=== PATIENT | female | born 1980 | race Caucasian/White ===

== ENCOUNTER 2019-03-11 11:19 | Day surgery (SDC) | payer OTHER ==
[2019-03-11] MEDS ORDERED: HYDROmorphone 1 MG/ML CARPUJECT IVP STA ×2 (12:07→12:45)
[2019-03-11] MEDS ORDERED: ONDANSETRON 4 MG/2 ML VIAL IVP STA ×2 (12:07→13:25)
--- NOTE | 2019-03-11 12:09 | ED Physician Documentation ---
PD HPI ABD PAIN - Stated complaint Stated Complaint: STERNUM PAIN - Chief complaint Chief Complaint: Abd Pain - History obtained from History obtained from: Patient - History of Present Illness Timing - onset: Today (She had gradual onset right upper quadrant pain radiating to the back starting this morning around 8 AM and was severe by 10 AM. Its associated with nausea and vomiting. This is nothing she is ever had before. Pain is sharp and severe at this point. No changes in bowel movements or possibility of . She had a laparoscopic gastric bypass done about 2 years ago in [place] without cholecystectomy.) Review of Systems Ten Systems: 10 systems reviewed and negative Constitutional: reports: Sweats. denies: Fever, Chills Respiratory: denies: Dyspnea, Cough GI: reports: Abdominal Pain, Nausea, Vomiting. denies: Constipation, Diarrhea : denies: Dysuria, Hesitancy PD PAST MEDICAL HISTORY - Past Surgical History Past Surgical History: Yes General: Gastric surgery - Allergies Allergies/Adverse Reactions: Allergies Allergy/AdvReac Type Severity Reaction Status Date / Time No Known Drug Allergies Allergy Verified 03/11/19 11:26 - Living Situation Living Situation: reports: With spouse/s.o. - Social History Does the pt drink ETOH?: No Does the pt have substance abuse?: No - Family History Family history: reports: Non contributory PD ED PE NORMAL - Vitals Vital signs reviewed: Yes - General General: Alert and oriented X 3, Other (Uncomfortable) - HEENT HEENT: PERRL, EOMI - Neck Neck: Supple, no meningeal sign, No bony TTP - Cardiac Cardiac: RRR, No murmur - Respiratory Respiratory: No respiratory distress, Clear bilaterally - Abdomen Abdomen: Normal bowel sounds, Soft, Other (Quite tender in the right upper quadrant with positive Grant sign.) - Back Back: No CVA TTP, No spinal TTP - Derm Derm: Normal color, Warm and dry - Extremities Extremities: No edema, No calf tenderness / cord - Neuro Neuro: Alert and oriented X 3, Normal speech Results - Vitals Vitals: Vital Signs - 24 hr 03/11/19 03/11/19 11:24 12:10 Temperature 35.9 C L Heart Rate 70 71 Respiratory 18 17 Rate Blood Pressure 141/97 H 122/79 O2 Saturation 100 100 Oxygen O2 Source Room air - Labs Labs: Laboratory Tests 07/24/19 07/24/19 12:01 12:01 WBC 10.1 RBC 4.14 L Hgb 13.4 Hct 38.6 MCV 93.2 MCH 32.4 H MCHC 34.7 RDW 11.9 L Plt Count 215 MPV 9.9 Neut # (Auto) 7.4 H Lymph # (Auto) 1.9 [place] # (Auto) 0.7 Eos # (Auto) 0.1 Baso # (Auto) 0.0 Absolute Nucleated RBC 0.00 Nucleated RBC % 0.0 Sodium 138 Potassium 4.0 Chloride 102 Carbon Dioxide 23 Anion Gap 13.0 BUN 13 Creatinine 0.8 Estimated GFR (MDRD) 81 L Glucose 105 H Calcium 9.0 Total Bilirubin 0.9 AST 24 ALT 28 Alkaline Phosphatase 50 Total Protein 7.2 Albumin 3.9 Globulin 3.3 Albumin/Globulin Ratio 1.2 Lipase 35 - Rads (name of study) Abd sono Radiology: EMP read contemporaneously (Dilated gallbladder with multiple stones and mild wall thickening.) PD MEDICAL DECISION MAKING - ED course ED course: 38-year-old woman status post gastric bypass presents with pain very suggestive of a biliary source. Multiple gallstones on ultrasound with a dilated gallbladder but normal bile duct and no transaminitis or obstructive pattern on labs. Spoke with Dr. Amador given the difficulty of pain control in her, requiring multiple doses of divided narcotics and she will take her to the operating room. Departure - Departure Disposition: ED Transfer to [facility] Clinical Impression: Biliary colic Condition: Stable
[2019-03-11 12:17] LABS: BASOPHILS % (AUTO) 0.4 %; EOSINOPHILS # (AUTO) 0.1 10^3/uL (0.0-0.7); EOSINOPHILS % (AUTO) 0.7 %; HGB - HEMOGLOBIN 13.4 g/dL (12.0-16.0); LYMPHOCYTES # (AUTO) 1.9 10^3/uL (1.5-3.5); LYMPHOCYTES % (AUTO) 18.7 %; MEAN CORPUSCULAR HEMOGLOBIN 32.4 pg (27.0-31.0); MEAN CORPUSCULAR HGB CONC 34.7 g/dL (32.0-36.0); MEAN CORPUSCULAR VOLUME 93.2 fL (81.0-99.0); MEAN PLATELET VOLUME 9.9 fL (7.9-10.8); MONOCYTES # (AUTO) 0.7 10^3/uL (0.0-1.0); MONOCYTES % (AUTO) 7.1 %; NEUTROPHILS # (AUTO) 7.4 10^3/uL (1.5-6.6); NEUTROPHILS % (AUTO) 72.6 %; PLT - PLATELET COUNT 215 10^3/uL (130-450); RED BLOOD COUNT 4.14 10^6/uL (4.20-5.40); RED CELL DISTRIBUTION WIDTH 11.9 % (12.0-15.0); WHITE BLOOD COUNT 10.1 x10^3/uL (4.8-10.8)
[2019-03-11 12:26] LABS: CREATININE 0.8 mg/dL (0.4-1.0)
[2019-03-11 12:27] LABS: ALBUMIN 3.9 g/dL (3.2-5.5); ALBUMIN/GLOBULIN RATIO 1.2 (1.0-2.2); BILIRUBIN,TOTAL 0.9 mg/dL (0.2-1.0); TOTAL PROTEIN 7.2 g/dL (6.7-8.2)
[2019-03-11] MEDS ORDERED: METOCLOPRAMIDE 10 MG/2 ML VIAL IVP STA (12:45)
[2019-03-11] MEDS ORDERED: KETOROLAC 30 MG/ML VIAL IVP STA (13:25)
[2019-03-11] MEDS ORDERED: LACTATED RINGERS 1,000 ML IV STA (13:32)
--- NOTE | 2019-03-11 13:51 | Ultrasound Report ---
Reason: RUQ pain Procedure Date: 03/11/2019 Accession Number: [id number] / [id number] Procedure: US - Abdomen Limited CPT Code: FULL RESULT: EXAM: ABDOMEN ULTRASOUND LIMITED, RUQ EXAM DATE: 03/11/2019 01:20 PM. CLINICAL HISTORY: Right upper quadrant pain. COMPARISON: None. TECHNIQUE: Real-time scanning was performed with static images obtained. FINDINGS: Liver: Liver parenchyma is somewhat echogenic and mildly coarse, limiting evaluation for underlying 19 cm. Main portal vein flow: Hepatopetal. Gallbladder: Cholelithiasis, stones are felt to be mobile by the sonography technologist on positioning, minimally thickened gallbladder for degree of distention, gallbladder is distended. There is no pericholecystic fluid or discontinuity of the gallbladder wall. The sonographic Grant's sign could not be assessed, patient was administered pain medication. Biliary System: CBD measures 3 mm. No intrahepatic or extrahepatic ductal dilatation. Other: None. IMPRESSION: Distended gallbladder with mild gallbladder wall thickening and cholelithiasis. While there is no marked gallbladder wall thickening or discontinuity of the sonographic signature of the gallbladder wall or pericholecystic fluid to suggest florid cholecystitis, chronic cholecystitis or early/sonographically indolent cholecystitis remain possible in the setting of a nondiagnostic sonographic Grant's sign. [facility]
[2019-03-11 14:01] LABS: BILIRUBIN,URINE NEGATIVE (NEGATIVE); GLUCOSE, URINE (UA) NEGATIVE (NEGATIVE); KETONES,URINE (UA) 40 mg/dL (NEGATIVE); LEUKOCYTE ESTERASE, URINE SMALL (NEGATIVE); NITRITE,URINE NEGATIVE (NEGATIVE); OCCULT BLOOD,URINE TRACE-INTA (NEGATIVE); PROTEIN,URINE NEGATIVE (NEGATIVE); UROBILINOGEN,URINE 0.2 (NORMAL) E.U./dL (NORMAL)
[2019-03-11 14:04] LABS: CLARITY,URINE HAZY (CLEAR); HCG UR QUAL NEGATIVE
[2019-03-11 14:13] LABS: RBC,URINE 0-5 /HPF (0-5); SQUAMOUS EPITHELIAL CELL,UR MOD Squamous (<= Few)
[2019-03-11 14:14] LABS: BACTERIA,URINE Moderate /HPF (None Seen)
[2019-03-11] MEDS ORDERED: LIDOCAINE-MPF 1% 30 ML VIAL ONE (14:32)
[2019-03-11] MEDS ORDERED: BUPIVACAINE 0.5%-EPI 1:200000 PF 30 ML VIAL ONE (14:32)
[2019-03-11] MEDS ORDERED: cefOXitin 2 GM in SODIUM CHLORIDE 0.9% MINIBAG 100 ML IV STA (14:43)
--- NOTE | 2019-03-11 14:49 | HISTORY & PHYSICAL EXAMINATION ---
HPI - Admitted From Admitted from: ED - History Obtained From Records Reviewed: RN notes reviewed History obtained from: Patient, Family Exam limitations: No limitations - History of Present Illness Pain/Problem Location Description: Right upper quadrant Severity at the worst: reports: Severe Pain Quality: reports: Sharp, Dull, Aching, Cramping Context-Pain started w/: reports: Eating Timing: reports: Abrupt onset, Constant Duration: reports: Hours: (4) Improved with: reports: Nothing Worsened by: reports: Nothing Associated symptoms: reports: Nausea, Vomiting HPI Comment/Other: Love is a jolene 38 year old lady who was in her usual state of health when s he developed sudden onset of severe right upper quadrant pain this morning. She has a history of gastric bypass approximately 2 years ago and has lost 70 pounds. At the time of her bypass, she did not have gall stones so cholecystectomy was not included with the bypass. She denies any sick contacts. She denies any fever. She has never had similar symptoms. PMH/PSH - Past Medical History Respiratory: positive: None Neuro: positive: None Endocrine/Autoimmune: positive: None GI: positive: None INSURANCE BILLER: positive: None : positive: None HEENT: positive: None Psych: positive: None Musculoskeletal: positive: None Derm: positive: None MRSA Hx?: No - Past Surgical History General: positive: Gastric surgery Social & Family Hx - Living Situation Living Arrangement: Other (Lives in [place] with her significant other. She is here visiting family for her sister's wedding.) - Social History Does the pt drink ETOH?: No Does the pt have substance abuse?: No - POLST POLST Status: Full Code - Family History Family History: Mother: Alive and Well, Father: Alive and Well, Sister: Alive and Well Meds/Allgy - Allergies Allergies/Adverse Reactions: Allergies Allergy/AdvReac Type Severity Reaction Status Date / Time No Known Drug Allergies Allergy Verified 03/11/19 11:26 Review of Systems - Constitutional Constitutional: denies: Fatigue, Fever - Eyes Eyes: denies: Pain, Irritation, Blurred vision - Ears, Nose & Throat Ears, Nose & Throat: denies: Tinnitus, Vertigo - Cardiovascular Cariovascular: denies: Irregular heart rate, Palpitations, Lightheadedness - Respiratory Respiratory: denies: Cough, Wheezing, Orthopnea - Gastrointestinal Gastrointestinal: reports: Abdominal pain, Nausea, Vomiting - Genitourinary Genitourinary: denies: Dysuria, Frequency, Urgency - Musculoskeletal Musculoskeletal: denies: Muscle pain, Back pain - Integumentary Integumentary: denies: Rash, Lesions - Neurological Neurological: denies: General weakness - Hematologic/Lymphatic Hematologic/Lymphatic: denies: Anemia, Bruising - All Other Systems All Other Systems: reports: Reviewed and negative Exam - Vital Signs Reviewed Vital Signs: Yes Vital Signs: Vital Signs x48h Temp Pulse Resp BP Pulse Ox 03/11/19 12:10 71 17 122/79 100 03/11/19 11:24 35.9 C L 70 18 141/97 H 100 - Physical Exam General Appearance: positive: Alert, Moderate distress Eyes Bilateral: positive: Normal inspection, PERRL, EOMI ENT: positive: ENT inspection nml Neck: positive: Nml inspection, Thyroid nml, No JVD, Trachea midline. negative: Carotid bruit Respiratory: positive: Chest non-tender, No respiratory distress, Breath sounds nml. negative: Wheezes Cardiovascular: positive: Regular rate & rhythm, No murmur, No gallop Peripheral Pulses: positive: 2+ Abdomen: positive: Nml bowel sounds, No distention, Other (Tender to palpation in the right upper quadrant) Back: negative: CVA tenderness (R), CVA tenderness (L) Skin: positive: Color nml, No rash Extremities: positive: Non-tender, Nml appearance Neurologic/Psychiatric: positive: Oriented x3, CN's nml (2-12) Results - Lab Results Lab results reviewed: Yes Fish Bones: 03/11/19 12:01 03/11/19 12:01 Other Lab Results: Lab Results x24hrs 03/11/19 03/11/19 03/11/19 Range/Units 13:48 12:01 12:01 WBC 10.1 (4.8-10.8) x10^3/uL RBC 4.14 L (4.20-5.40) 10^6/uL Hgb 13.4 (12.0-16.0) g/dL Hct 38.6 (37.0-47.0) % MCV 93.2 (81.0-99.0) fL MCH 32.4 H (27.0-31.0) pg MCHC 34.7 (32.0-36.0) g/dL RDW 11.9 L (12.0-15.0) % Plt Count 215 (130-450) 10^3/uL MPV 9.9 (7.9-10.8) fL Neut # (Auto) 7.4 H (1.5-6.6) 10^3/uL Lymph # (Auto) 1.9 (1.5-3.5) 10^3/uL [place] # (Auto) 0.7 (0.0-1.0) 10^3/uL Eos # (Auto) 0.1 (0.0-0.7) 10^3/uL Baso # (Auto) 0.0 (0.0-0.1) 10^3/uL Absolute Nucleated RBC 0.00 x10^3/uL Nucleated RBC % 0.0 /100WBC Sodium 138 (135-145) mmol/L Potassium 4.0 (3.5-5.0) mmol/L Chloride 102 (101-111) mmol/L Carbon Dioxide 23 (21-32) mmol/L Anion Gap 13.0 (6-13) BUN 13 (6-20) mg/dL Creatinine 0.8 (0.4-1.0) mg/dL Estimated GFR (MDRD) 81 L (>89) Glucose 105 H (70-100) mg/dL Calcium 9.0 (8.5-10.3) mg/dL Total Bilirubin 0.9 (0.2-1.0) mg/dL AST 24 (10-42) IU/L ALT 28 (10-60) IU/L Alkaline Phosphatase 50 (42-121) IU/L Total Protein 7.2 (6.7-8.2) g/dL Albumin 3.9 (3.2-5.5) g/dL Globulin 3.3 (2.1-4.2) g/dL Albumin/Globulin Ratio 1.2 (1.0-2.2) Lipase 35 (22-51) U/L Urine Color DARK YELLOW Urine Clarity HAZY (CLEAR) Urine pH 6.0 (5.0-7.5) PH Ur Specific [place] >=1.030 H (1.002-1.030) Urine Protein NEGATIVE (NEGATIVE) mg/dL Urine Glucose (UA) NEGATIVE (NEGATIVE) mg/dL Urine Ketones 40 H (NEGATIVE) mg/dL Urine Occult Blood TRACE-INTA (NEGATIVE) Urine Nitrite NEGATIVE (NEGATIVE) Urine Bilirubin NEGATIVE (NEGATIVE) Urine Urobilinogen 0.2 (NORMAL) (NORMAL) E.U./dL Ur Leukocyte Esterase SMALL H (NEGATIVE) Urine RBC 0-5 (0-5) /HPF Urine WBC 0-3 (0-5) /HPF Ur Squamous Epith Cells MOD Squamous H (<= Few) Urine Bacteria Moderate H (None Seen) /HPF Ur Microscopic Review INDICATED Urine Culture Comments NOT INDICATED Urine HCG, Qual NEGATIVE - Diagnostic Imaging Results Diagnostic Imaging Results: positive: Final report reviewed Diagnostic Imaging Results Comments: Final Report PT NAME: LOVE MCKINNEY MR#: [id number] REG ER/ED AGE: 38 CI DT/TM: 03/11/19 PCP: : 1980 ATT: SEX: F ORD: Praveen enamorado MD EXAM: [id number] US/ABDLTD ([id number]) Reason: RUQ pain Procedure Date: 03/11/2019 Accession Number: [id number] / [id number] Procedure: US - Abdomen Limited CPT Code: FULL RESULT: EXAM: ABDOMEN ULTRASOUND LIMITED, RUQ EXAM DATE: 03/11/2019 01:20 PM. CLINICAL HISTORY: Right upper quadrant pain. COMPARISON: None. TECHNIQUE: Real-time scanning was performed with static images obtained. FINDINGS: Liver: Liver parenchyma is somewhat echogenic and mildly coarse, limiting evaluation for underlying 19 cm. Main portal vein flow: Hepatopetal. Gallbladder: Cholelithiasis, stones are felt to be mobile by the radiology technologist on positioning, minimally thickened gallbladder for degree of distention, gallbladder is distended. There is no pericholecystic fluid or discontinuity of the gallbladder wall. The sonographic Grant's sign could not be assessed, patient was administered pain medication. Biliary System: CBD measures 3 mm. No intrahepatic or extrahepatic ductal dilatation. Other: None. IMPRESSION: Distended gallbladder with mild gallbladder wall thickening and cholelithiasis. While there is no marked gallbladder wall thickening or discontinuity of the sonographic signature of the gallbladder wall or pericholecystic fluid to suggest florid cholecystitis, chronic cholecystitis or early/sonographically indolent cholecystitis remain possible in the setting of a nondiagnostic sonographic Grant's sign. [facility] House Worker General: Reading Radiologist: Feliciano Nunez MD Releasing Radiologist: Feliciano Nunez MD Released Date Time: 03/11/191352 Report 52 cc: Praveen Grove MD Principal Wares Sorter Name: Feliciano Nunez Provider ID: [email or web address] Impression/Plan - Problem List Problem List: Pleasant and generally healthy 38 year old lady with cholelithiasis and intractable biliary colic. We have discussed the risks, benefits, and alternatives to cholecystectomy and the patient has expressed both understanding of the risks and a desire to have the procedure. We will proceed to the operating room.
[2019-03-11] MEDS ORDERED: levoFLOXacin 500 MG/100 ML 500 MG/100 ML BAG IV ONE (14:50)
--- NOTE | 2019-03-11 14:54 | ANESTHESIA ---
Pre-Anesthesia VS, & Labs - Diagnosis cholecystitis - Procedure laparoscopic cholecystectomy Vital Signs: Temp Pulse Resp BP Pulse Ox 35.9 C L 71 17 122/79 100 03/11/19 11:24 03/11/19 12:10 03/11/19 12:10 03/11/19 12:10 03/11/19 12:10 Height 5 ft 8 in Weight (kg) 104.326 kg Body Mass Index 34.9 - NPO Other (0930 today) - Is Patient ?: No - Lab Results Current Lab Results: Laboratory Tests 03/11/19 12:01: Sodium 138, Potassium 4.0, Chloride 102, Carbon Dioxide 23, Anion Gap 13.0, BUN 13, Creatinine 0.8, Estimated GFR (MDRD) 81 L, Glucose 105 H , Calcium 9.0, Total Bilirubin 0.9, AST 24, ALT 28, Alkaline Phosphatase 50, Total Protein 7.2, Albumin 3.9, Globulin 3.3, Albumin/Globulin Ratio 1.2, Lipase 35 03/11/19 12:01: WBC 10.1, RBC 4.14 L, Hgb 13.4, Hct 38.6, MCV 93.2, MCH 32.4 H, MCHC 34.7, RDW 11.9 L, Plt Count 215, MPV 9.9, Neut # (Auto) 7.4 H, Lymph # (Auto) 1.9, [place] # (Auto) 0.7, Eos # (Auto) 0.1, Baso # (Auto) 0.0, Absolute Nucleated RBC 0.00, Nucleated RBC % 0.0 Lab results reviewed: Yes Fish Bones: 03/11/19 12:01 03/11/19 12:01 Home Medications and Allergies Active Medications Lactated Ringer's (Lr) 1,000 mls @ 125 mls/hr IV .Q8H STA Stop: 03/11/19 21:31 Last Admin: 03/11/19 14:07 Dose: 125 mls/hr Cefoxitin Sodium 2 gm/ Sodium (Chloride) 100 mls @ 100 mls/hr IV ONCE STA Stop: 03/11/19 15:42 Levofloxacin (Levaquin 500 Mg/100 Ml) 500 mg in 100 mls @ 100 mls/hr IV ONCE ONE Stop: 03/11/19 15:49 Allergies/Adverse Reactions: Allergies Allergy/AdvReac Type Severity Reaction Status Date / Time No Known Drug Allergies Allergy Verified 03/11/19 11:26 Anes History & Medical History - Anesthetic History Anesthesia Complications: reports: No previous complications Family history of Anesthesia Complications: Denies Family history of Malignant Hyperthermia: Denies - Surgical History General: Gastric surgery Exam General: Alert, Oriented x3, Cooperative, No acute distress Dental: WNL Mouth Openin Fingerbreadth Neck Mobility: Normal Mallampati classification: III Thyromental Distance: greater than 6 cm Respiratory: Lungs clear, Normal breath sounds, No respiratory distress, No accessory muscle use Cardiovascular: Regular rate, Normal S1, Normal S2, No murmurs Plan Anesthesia Type: General Consent for Procedure(s) Verified and Reviewed: Yes Code Status: Attempt Resuscitation ASA classification: 2-Mild systemic disease Is this case an emergency?: No
[2019-03-11] MEDS ORDERED: LACTATED RINGERS 1,000 ML IV ONE ×2 (15:29→16:25)
--- NOTE | 2019-03-11 16:39 | OPERATIVE REPORT ---
Operative Report - General Procedure Date: 03/11/19 Planned Procedure: Laparoscopic Cholecystectomy Pre-Op Diagnosis: Cholelithiasis and Intractable Biliary Colic Procedure Performed: Laparoscopic Cholecystectomy Post Op Diagnosis: Acute Cholecystitis and Cholelithiasis - Procedure Note Primary Surgeon: Marjorie Anesthesia Provider: MD Sharmin Anesthesia Technique: General ET tube, Local Pathology: Gall bladder in formalin to pathology Estimated Blood Loss (mL): 20 Findings: Acute cholecystitis with hydrops Complications: None apparent - Other Other Information/Narrative: After obtaining informed consent, the patient was brought to the operating room and placed in the supine position on the operating table. Following successful induction of general endotracheal anesthesia, appropriate padding of all bony prominences and placement of appropriate monitors, the abdomen was prepped and draped in the standard surgical fashion. A time out was held per SCOAP protocol. Following infiltration with local anesthetic to create a field block, an incision was created superior to the umbilicus and carried through the skin and subcutaneous tissue to reveal the fascia below. Two zero Vicryl retention sutures were placed on either side of the midline and the abdomen was entered under direct vision. A 10 mm blunt Cadena balloon trocar was placed in the abdominal cavity and it was insufflated to 15 mm of mercury pressure. The 5 mm 30 degree camera was placed in the abdominal cavity and we immediately visualized an acutely infected and distended gall bladder. The patient was plac ed in reverse trendelenburg position with the left side rotated toward the surgeon. Following infiltration with local anesthetic, three 5 mm trocars were placed in the abdominal cavity under direct vision. One in the midepigastrum and two more in the right upper quadrant. The fundus of the gall bladder was grasped and elevated over the liver to reveal the cholecystohepatoduodenal ligament. Careful dissection was undertaken to expose the cystic duct and artery as well as the common duct. The intraperitoneal fatty tissue was gently removed from these structures until the anatomy was clear. The cystic duct was then addressed with three clips proximally and one distally. It was divided between clips. The cystic artery was addressed with two clips proximally and one distally and divided between clips. The gall bladder was then liberated from its bed in the liver with cautery and placed in an endoscopic bag. It was removed under direct vision. The abdominal cavity was then irrigated with 1 liter of warm saline solution and aspirated free of all fluid and particulate matter. The trocars were removed under direct vision and the abdomen desufflated. The periumbilical incision was closed with Vicryl and Monocryl suture in layers. Monocryl was applied to the remainder of the skin incisions. All sponge, needle, and instrument counts were correct at the conclusion of the case. The patient was allowed to awaken from anesthesia without difficulty and taken to the post anesthesia care unit in good condition.
[2019-03-11] MEDS ORDERED: oxyCODONE 5 MG TABLET PO PRN (16:54)
[2019-03-11] MEDS ORDERED: HYDROmorphone 0.5 MG/0.5 ML SYRINGE IVP PRN (16:54)
[2019-03-11] MEDS ORDERED: ONDANSETRON 4 MG/2 ML VIAL IVP PRN (16:54)
[2019-03-11] MEDS: fentaNYL 100 MCG/2 ML VIAL ONE ×2 (17:00→17:05)
[2019-03-11 18:09] VITALS: BP 114/75
== END 2019-03-11 18:30 | disposition home or self-care (01) ==
LOC: ED 11:19 → SDS 14:42 → ICU 17:36 → SDS 18:30
PROVIDERS: ATTEND Surgery
PROC: 0FT44ZZ Resection of Gallbladder, Percutaneous Endoscopic Approach (ICD-10-PCS; principal; 2019-03-11 15:00)
DX: K80.00 Calculus of gallbladder with acute cholecystitis without obstruction (principal)
CPT/HCPCS: 36415; 47562; 76705; 80053; 81001; 81025; 83690; 85025; 96374; 96375; 96376; 99284; 99285; J1170; J2765; J7120; 81003; 87086